=== PATIENT | male | born 1965 | race African-American/Black ===

== ENCOUNTER 2023-09-25 20:58 | Emergency (ER) | payer OTHER, SELFPAY ==
--- NOTE | ~2023-09-25 | XR_ITS ---
XR ankle LT min 3V Ordering provider: Lety Burkett PA-C History: . left ankle pain, injury . Comparison: None. FINDINGS: BONES: Fracture in the lateral malleolus is noted. No other fractures seen. Minimal displacement is n oted. Calcaneus spur. Ossification of the insertion of the tendo Achilles. JOINT SPACES: The ankle mortise is normal. SOFT TISSUES: Soft tissue swelling over the lateral malleolus. IMPRESSION: Fracture lateral malleolus. Reviewed, dictated and finalized at location A. IMPRESSION: Fracture lateral malleolus.
[2023-09-25 21:04] VITALS: BP 127/79; PULSE 93; RESP 16; TEMP 37.4; O2SAT 98
--- NOTE | 2023-09-25 21:16 | PC.NURSE ---
pt visitor approached nurses station and requested pt to moved rooms. pt visitor stated, I heard the other patient in our room coughing and I don't want us to get sick, I need a different room that is available . this rn spoke with scrap charger and pt was moved from room 3 to available room h3.
--- NOTE | 2023-09-25 21:26 | ED.LOWEXIN ---
HPI - Extremity Injury (Lower) General Chief Complaint: Extremity Injury, Lower Stated Complaint: left ankle injury Time Seen by Provider: 09/25/23 21:04 Source: patient Mode of arrival: wheelchair Limitations: no limitations History of Present Illness HPI Narrative: This is a 58-year-old male that presents to the emergency department after a left ankle injury sustained just prior to arrival. Reports he was walking up the steps and rolled his ankle. Reports swelling and pain to the area. He did not hit his head or lose consciousness. No other injuries or focal areas of pain. Denies decreased range of motion or numbness. Related Data Allergies Allergy/AdvReac Type Severity Reaction Status Date / Time No Known Allergies Verified 09/25/23 20:59 Review of Systems Review of Systems: CONSTITUTIONAL: Denies fever MUSCULOSKELETAL: Reports joint pain, and myalgia. NEUROLOGIC: Denies numbness All systems reviewed & are unremarkable except as noted in HPI and below PMFSH Past Medical History Medical History (Updated 09/25/23 @ 22:57 by Lety Burkett PA-C) History of diabetes mellitus History of hyperlipidemia History of hypertension Social History Social History (Updated 09/25/23 @ 21:27 by Lety Burkett PA-C) Substance use: never Exam Narrative: GENERAL: Well-appearing, well-nourished, and in no acute distress. HEAD: Normocephalic, atraumatic. EYES: EOMI. EXTREMITIES: Normal range of motion. Moderate edema about the ankle. Normal DP pulse. Normal sensation SKIN: Warm, dry, no rash. NEURO: No focal deficits. Alert and oriented x3. PSYCH: Normal mood and affect Course Course Emergency Course: Patient updated on workup and agrees with plan of care Vital Signs Vital signs: Vital Signs Temperature 99.4 F 09/25/23 21:04 Pulse Rate 93 09/25/23 21:04 Respiratory Rate 16 09/25/23 21:04 Blood Pressure 127/79 09/25/23 21:04 Pulse Oximetry 98 09/25/23 21:04 Oxygen Delivery Room Air 09/25/23 21:04 Temperature 99.4 F 09/25/23 21:04 Pulse Rate 93 09/25/23 21:04 Respiratory Rate 16 09/25/23 21:04 Blood Pressure 127/79 09/25/23 21:04 Pulse Oximetry 98 09/25/23 21:04 Oxygen Delivery Room Air 09/25/23 21:04 Procedures Orthopedic Splinting/Casting Injury #1: Splinting/Casting Date: 09/25/23 Splinting/Casting Time: 23:02 Side: left Lower Extremity Injury Location: ankle Lower Extremity Immobilizer: posterior splint Splint: customized in ED OCL: short leg Pre-Procedure Neuro Vascular Exam: normal Post-Procedure Neuro Vascular Exam: normal Other Orthopedic Equipment: crutches MDM - Extremity Injury (Lower) MDM Narrative Medical decision making narrative: Patient presents to the emergency department after an ankle injury prior to arrival. He is neurovascularly intact. Left ankle x-ray shows fracture lateral malleolus. Patient placed in a splint and given crutches. Will be given follow-up with Orthopedics. He was given warnings to return to the ER Differential Diagnosis Differential diagnosis: Likely ankle sprain and strain and ankle fracture Imaging Data Radiologist's impression: ITS Impressions Ankle X-Ray 09/25/23 22:00 IMPRESSION: Fracture lateral malleolus. Critical Care Time Critical Care Time Critical Care Time: No Discharge Plan Discharge Clinical Impression: Closed fracture of distal end of left fibula Qualifiers: Encounter type: initial encounter Fracture morphology: unspecified fracture morphology Qualified Code(s): S82.832A - Other fracture of upper and lower end of left fibula, initial encounter for closed fracture Patient Disposition: Home, Self-Care Condition: Stable Instructions: Ankle Fracture (ED) Additional Instructions: Return to the ER if you experience fever, redness and swelling of your extremity, numbness or any other sympt
[2023-09-25] MEDS: HYDROcodone/acetaminophen (*CRX) 5-325 MG TABLET 1 TAB PO (21:40)
== END 2023-09-25 23:15 | disposition home or self-care (01) ==
PROVIDERS: Emergency Provider Physician Assistant
DX: S82.832A Other fracture of upper and lower end of left fibula, initial encounter for closed fracture (principal); E78.5 Hyperlipidemia, unspecified; I10 Essential (primary) hypertension; E11.9 Type 2 diabetes mellitus without complications; X50.0XXA Overexertion from strenuous movement or load, initial encounter
CPT/HCPCS: 29515; 73610; 99284; A9270

== ENCOUNTER 2023-09-29 00:37 | Day surgery (SDC) | payer OTHER, SELFPAY ==
[2023-09-27 15:00] VITALS: BMI 26.6
--- NOTE | 2023-09-27 15:02 | PC.NURSE ---
Report to the Outpatient Waiting Room, entrance under the green pavilion located off [facility], at time _0700_ on date _[id number]_. Planned Procedure Time: _0900_. Time changes happen often and if your time is changed the preop area will call you the afternoon before. - You and your visitor will be asked to self-screen and do not enter if you have any COVID symptoms. - A mask is optional within the hospital at this time. Patients may have clear liquids (water, carbonated beverages, clear teas, apple juice) until 3 hours prior to surgery with a maximum of 20 ounces. - No food from midnight until time of surgery Take the following medications with a SIP of water the morning of surgery: ___Amlodipine DO NOT STOP ANY OF YOUR OTHER PRESCRIPTION MEDICATIONS PRIOR TO SURGERY ?EXCEPT THE FOLLOWING Medications to discontinue per physician Morning of surgery do not take diabetic medications. Date to take last dose Please no make-up, nail malaysian, hairspray, perfume, deodorant, or body powder the day of surgery. No jewelry (including any body piercings) or valuables the day of surgery, leave them at home. Please take a shower or bath the night before, or the morning of, surgery with an antibacterial soap. Wear comfortable, loose fitting clothing. - Jewelry must be removed prior to entering the operating room. Rings and piercings that are not removed may be cut off. - The hospital will not accept responsibility for valuables. - Please leave all valuables, including medications, at home the day of surgery. If you are going home after surgery, a licensed auto [place]ula[place] driver must drive you home. - NO public transportation without another adult if you receive anesthesia. - We recommend that an adult stay with you for 24 hours following discharge. - We also recommend that you do not drive, make important decision, drink alcoholic beverages, or take any drugs that were not prescribed by your health care provider for at least 24 hours after your discharge time. Follow any additional instructions given to you from your surgeon. If you or anyone in your household have experienced Covid symptoms in the past week, please notify your surgeon or the nurse liaison at the phone number below for possible testing. Telephone instructions given to __[email or web address]__and asked if any additional questions and then verbalized understanding. Patient advised to call surgeon office or pre surgery nurse liaison [phone] if any additional questions.
--- NOTE | 2023-09-28 13:48 | P.PNAN_ITS ---
Anes - Initial Pre Proc Eval Procedure: Operation Date: 09/29/23 09:00 Proposed Procedures p Open Reduction Internal Fixation Left Ankle Fracture - Tay Starkey MD Date/Time: 09/28/23 13:48 Surgeon: Tay Starkey MD Pre Op Diagnosis: left ankle fx Patient Data Age: 58 Gender: M Height: 1.75 m Weight: 81.8 kg Allergies Allergy/AdvReac Type Severity Reaction Status Date / Time No Known Allergies Allergy Verified 09/29/23 07:39 Home Medications Medication Instructions Recorded Confirmed Type hydrocodone 5 mg-acetaminophen 325 1 tablet PO Q6H PRN pain #20 tabs 09/25/23 09/28/23 Rx mg tablet amlodipine 10 mg tablet 10 mg PO DAILY 09/27/23 09/28/23 History atorvastatin 20 mg tablet 20 mg PO DAILY 09/27/23 09/28/23 History empagliflozin 25 mg tablet 25 mg PO DAILY 09/27/23 09/28/23 History (Jardiance) metformin 500 mg tablet,extended 500 mg PO BID 09/27/23 09/28/23 History release 24 hr Patient hx anesthesia problems: none Family hx anesthesia problems: none Results Review: All pre-operative results and documents have been reviewed as part of the pre- operative evaluation. [facility] Past Medical History Medical History (Updated 09/28/23 @ 12:20 by Tay Starkey MD) History of diabetes mellitus History of hyperlipidemia History of hypertension Trimalleolar fracture of left ankle Family History Family History Unknown Hypertension Diabetes mellitus Social History Social History Social History: caffeine use Smoking status: Never smoker Alcohol intake: current Drinks per week: 1 Substance use: never Living arrangements: with family Occupation/Education: retired Gender identity (if verbalized by the patient): Male Spiritual care concerns: No Anes - Eval Final PreProcedure Day of Procedure 09/28/23 13:48 Patient weight: overweight Heart: regular rate and rhythm Lungs: clear to auscultation Airway: Mallampati scale class II Neurological: alert and oriented Last oral intake: >/= 8 hours ASA classification: III Emergent: no Anesthetic plan: proceed Anesthesia type and monitoring: general LMA and standard monitoring Results Review: All pre-operative results and documents have been reviewed as part of the pre- operative evaluation. Informed Consent: The patient's anesthetic plan and its attendant risks and benefits were discussed with the patient/family/POA. Questions were solicited and answers provided to the satisfaction of the patient/family/POA.
[2023-09-29] VITALS (10 sets, daily range): BP systolic 90–148; BP diastolic 56–75; PULSE 56–75; RESP 12–16; TEMP 36.2–36.4; O2SAT 97–100; BMI 26.2
--- NOTE | ~2023-09-29 | XR_ITS ---
EXAMINATION: XR surgery orthopedic DATE: 09/29/2023 09:57 INDICATION: Distal left fibula fracture. TECHNIQUE: 4 intraoperative fluoroscopic views of left ankle were obtained. I was not present. Fluoro scopy exposure time was 15 seconds. COMPARISON: Left ankle radiograph 09/28/2023 FINDINGS: There is an oblique fracture of distal fibula in near-anatomic alignment status post open r eduction internal fixation with lateral plate and screws. IMPRESSION: 1. Oblique fracture of distal fibula status post open reduction internal fixation. Reviewed, dictated and finalized at location A. IMPRESSION: 1. Oblique fracture of distal fibula status post open reduction internal fixati on.
--- NOTE | 2023-09-29 06:16 | ECG_ITS ---
Test Date: 2023-09-29 07:52:19 Measurements Intervals [place]on Rate: 59 P: 42 ID: [id number] QRS: 3 QRSD: 88 T: 6 QT: 391 QTc: 388 Interpretive Statements SINUS BRADYCARDIA CANNOT RULE OUT INFERIOR INFARCTION ABNORMAL ECG No previous ECG available for comparison Electronically Signed On 09-29-2023 15:16:25 CDT by Sebastian Rudolph M.D.
[2023-09-29 07:21] LABS: Glucose Point of Care 135 mg/dl (65-105)
[2023-09-29] MEDS: LACTATED RINGERS 1,000 ML 30 ML IV CONT ×2 (07:52→10:13)
[2023-09-29 08:04] LABS: Anion Gap 9 mmol/L (4-12); Blood Urea Nitrogen 16 mg/dL (9-20); Calcium 9.4 mg/dL (8.4-10.2); Carbon Dioxide 24 mmol/L (22-30); Chloride 108 mmol/L (98-107); Estimated CRCL calculation 63 ml/min; Estimated Glomerular Filt Rate > 60; Glucose 144 mg/dL (65-110); Potassium 4.2 mmol/L (3.4-5.0); Sodium 141 mmol/L (137-145)
[2023-09-29] MEDS: KETOROLAC 15 MG/ML VIAL (*BKC) IV PUSH (08:12)
[2023-09-29] MEDS: ACETAMINOPHEN 500 MG TABLET 1000 MG PO (08:12)
--- NOTE | 2023-09-29 08:39 | WPDHPUPDATE1 ---
History and Physical Update Update Date/Time: 09/29/23 08:39 History and Physical has been reviewed, including an updated exam of the patient. There are NO changes in the patient's condition. Risks, benefits, and alternatives have been discussed and questions answered. Patient agrees to proceed with procedure.
[2023-09-29] MEDS: ceFAZolin 2 GM/D5W 50 ML 2 GM/50 ML BAG IVPB (09:02)
[2023-09-29] MEDS: BUPIVACAINE/EPINEPHRINE 0.5% 10 ML VIAL 30 ML INFILTRATE (09:22)
--- NOTE | 2023-09-29 10:29 | P.OP_ITS ---
Procedure Note - Detailed Date of Procedure 09/29/23 Pre-op Diagnosis left ankle fx Post-op Diagnosis Same Procedure Performed Open reduction internal fixation left ankle trimalleolar fracture with fixation of lateral malleolus Surgeon Tay Starkey MD [employer] Consultant 1st speech pathology assistant Anesthesia General Indications 58-year-old man twisted left ankle causing trimalleolar fracture. Displacement of ankle fracture noted. Ankle mortise disrupted. Patient for operative treatment. Findings left ankle trimalleolar fracture displaced lateral malleolus fracture disrupted ankle mortise. Small medial malleolus fracture and posterior malleolus fracture with good alignment after fixation fibula. Description of Procedure After informed consent, the operative extremity was marked in the preoperative holding area. Patient received intravenous antibiotics. Patient was then taken to the operating room and underwent general anesthesia by the anesthesia team. They were positioned supine on the operating room table. A time-out was performed confirming the patient, site of the surgery, operative plan. Lower extremity then prepped and draped in the usual sterile surgical fashion using ChloraPrep skin solution. Foot and ankle exsanguinated and a thigh tourniquet inflated to 250 mmHg. Longitudinal incision made over the lateral ankle distal fibula with a 15 blade knife. Hemostasis controlled with electrocautery. Full- thickness soft tissue flaps developed and the fascia was incised in line with the skin incision. Fracture identified and cleared with a dental pick, irrigation and rongeur. Fracture reduced and held with bone-holding clamp. Image intensification confirmed reduction of the fracture and the ankle mortise. Fixation Achieved with Neutralization with a lateral plate with unicortical screws distal to fracture and bicortical screws proximal to the fracture. fracture pattern did not allow for a lag screw placement. Good alignment and stability of the fracture noted. Image intensification used to confirm reduction of the fracture and placement of the hardware. Stress of the ankle performed with good stability of the ankle mortise in all directions. Medial malleolus and lateral posterior malleolus fracture is well aligned and stable. Wound thoroughly irrigated with antibiotic solution. Fascia repaired with 00 Vicryl interrupted suture. Subcutaneous tissue repaired with 000 Monocryl interrupted suture and 0000 nylon running suture. Sterile dressings applied. Patient awoken from anesthesia, extubated and taken to the recovery room in stable condition. All sponge, needle and instrument counts correct at the end of the case. Palpable dorsalis pedis pulse noted prior to dressing. Implants Arthrex distal fibula plate with distal locking screws and 3.5 mm proximal screws Estimated Blood Loss 10 Tourniquet Time Total Tourniquet Time: 40 Drains No Packing No Pathology None sent Complications None Condition Stable Disposition PACU [facility] Billing Surgery - Charge Forward: Surgery Billing ([id number])
[2023-09-29 10:30] LABS: Glucose Point of Care 117 mg/dl (65-105)
[2023-09-29] MEDS: oxyCODONE HCL (*CRX) 5 MG TAB IR PO (11:35)
== END 2023-09-29 12:10 | disposition home or self-care (01) ==
PROVIDERS: Anesthesiology; PCP Family Medicine Sports Medicine; Visit Provider Orthopaedic Surgery
PROC: (CPT 27822; principal; 2023-09-29 09:00)
DX: S82.852A Displaced trimalleolar fracture of left lower leg, initial encounter for closed fracture (principal); X50.0XXA Overexertion from strenuous movement or load, initial encounter; I10 Essential (primary) hypertension; E11.9 Type 2 diabetes mellitus without complications; E78.5 Hyperlipidemia, unspecified; Z79.84 Long term (current) use of oral hypoglycemic drugs
CPT/HCPCS: 27822; 36415; 80048; 82948; 93005; 99199; A9270; C1713; J0690; J1100; J1170; J1885; J2250; J2405; J2704; J3010; J7120